=== PATIENT | male | born 1985 | race Caucasian/White ===

== ENCOUNTER 2021-10-27 16:48 | Inpatient (IN) | payer OTHER ==
[~2021-10-27] VITALS: Ht 180.3 cm; Wt 99.3 kg
--- NOTE | 2021-10-27 17:21 | NUR ---
PT SELF PRESENTS TO ED, C/O NOTICING LOW O2 SATURATION READ ON HIS PULSE OXIMETER. PT STATES PT BEEN SHORT OF BREATH SINCE MONDAY, WORST ON EXERTION AND IS HAVING A HARD TIME SLEEPING. HE HAS COVID VACCINE AND WAS TESTED RECENTLY AND RESULT IS NOT BACK YYET. 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 SATTING 93% ON RA. KAMILLA HUDSON.
--- NOTE | 2021-10-27 17:39 | NUR ---
NOA RANGEL AT BEDSIDE FOR EVAL.
--- NOTE | 2021-10-27 17:48 | NUR ---
HADOOP INFRASTRUCTURE ARCHITECT AT BEDSIDE FOR BLOOD DRAW.
[2021-10-27 18:20] LABS: BASOPHILS % (AUTO) 0.1 % (0.0-2.0); EOSINOPHILS % (AUTO) 0.1 % (0.0-6.0); HEMATOCRIT 43 % (39-51); HEMOGLOBIN 14.7 g/dL (13.5-17.5); LYMPHOCYTES # (AUTO) 1.4 K/uL (0.8-4.8); LYMPHOCYTES % (AUTO) 15.3 % (20.0-44.0); MEAN CORPUSCULAR HGB CONC 34 g/dl (31.0-36.0); MEAN CORPUSCULAR VOLUME 87 fL (80-96); MONOCYTES % (AUTO) 10.7 % (2.0-12.0); NEUTROPHILS # (AUTO) 6.9 K/uL (1.8-8.9); NEUTROPHILS % (AUTO) 73.8 % (43.0-81.0); PLATELET COUNT (AUTO) 343 K/uL (150-450); RED BLOOD CELL COUNT(AUTO) 4.95 MIL/uL (4.5-6.0); WHITE BLOOD COUNT (AUTO) 9.4 K/uL (4.3-11.0)
[2021-10-27 18:32] LABS: CALCIUM, SERUM 8.8 mg/dL (8.5-10.1); CARBON DIOXIDE 25 mmol/L (21-32); CHLORIDE 98 mmol/L (98-107); CREATININE 1.3 mg/dL (0.6-1.3); GLUCOSE 136 mg/dL (74-106); POTASSIUM 3.4 mmol/L (3.5-5.1); SODIUM SERUM 133 mmol/L (136-145); UREA NITROGEN, BLOOD 12 mg/dL (7-18)
[2021-10-27 18:44] LABS: ALANINE AMINOTRANSFERASE 59 U/L (12-78); ALBUMIN 4.3 g/dL (3.4-5.0); ALKALINE PHOSPHATASE 64 U/L (46-116); ASPARTATE AMINOTRANSFERASE 43 U/L (15-37); BILIRUBIN,DIRECT 0.1 mg/dL (0.0-0.2); BILIRUBIN,TOTAL 0.4 mg/dL (0.2-1.0); TOTAL PROTEIN, SERUM 8.4 g/dL (6.4-8.2)
[2021-10-27] MEDS ORDERED: KETOROLAC TROMETHAMINE 15 MG/ML VIAL ONE (18:45)
[2021-10-27] MEDS ORDERED: ACETAMINOPHEN ES 500 MG TABLET ONE (18:45)
[2021-10-27] MEDS ORDERED: IV NS 0.9% 500 ML BAG IV ONE ×2 (19:00→21:30)
[2021-10-27] MEDS ORDERED: ACETAMINOPHEN 325 MG TABLET PO ONE (19:00)
[2021-10-27] MEDS ORDERED: KETOROLAC TROMETHAMINE INJ 30 MG/ML VIAL IV ONE (19:00)
--- NOTE | 2021-10-27 19:01 | NUR ---
LAB CALLED PT COIVD (+)
[2021-10-27] MEDS ORDERED: POTASSIUM CHLORIDE 20 MEQ TAB.PRT.SR PO ONE ×2 (20:00→20:49)
[2021-10-27] MEDS ORDERED: DEXAMETHASONE SOD PHOSPHATE 6 MG in IV D5W 50 ML IV ONE (20:00)
[2021-10-27] MEDS ORDERED: DEXAMETHASONE SOD PHOSPHATE 10 MG/ML VIAL ONE (20:49)
[2021-10-28] MEDS ORDERED: ACETAMINOPHEN 325 MG TABLET PO PRN
[2021-10-28] MEDS ORDERED: ALBUTEROL SULFATE 8 GM HFA.AER.AD IH PRN
[2021-10-28] MEDS ORDERED: ONDANSETRON HCL/PF 4 MG/2 ML VIAL IV PRN
--- NOTE | 2021-10-28 00:08 | NUR ---
REPORT GIVEN TO RN MS2
[2021-10-28 00:35] VITALS: BP 113/68
--- NOTE | 2021-10-28 00:35 | NUR ---
PATIENT TRANSFERRED UNDER ACLS
--- NOTE | 2021-10-28 04:40 | NUR ---
Patient arrived to [facility] at 0035. Patient's breathing does not appear labored at this time, but patient does c/o SOB especially upon exertion along with fatigue. Patient is A&Ox4, VS: BP 113/68, temp 97.8, O2 sat 96% on 4L via NC., pulse 68, RR 20. Pupils equal and reactive to light, all extremities move evenly, lung sounds diminished, heart rate and rhythm regular, bowel sounds hypoactive -pt reports he hasn't eaten anything but saltines in days d/t lack of appetite. Skin intact. Tele monitor applied SR 63. Oriented pt. to unit protocols, call light, bed remote.
[2021-10-28] MEDS ORDERED: SERT100T PO (05:27)
[2021-10-28] MEDS ORDERED: BUPR300T52 PO (05:27)
[2021-10-28] MEDS ORDERED: LORA10TA68 PO (05:27)
--- NOTE | 2021-10-28 06:49 | NUR ---
No overnight events since admission. Patient is in bed with no signs of distress. However, was not able to sleep last night. O2 96% and over since admit. Addendum: 10/28/21 at 0657 by BREA BLANCHARD RN SB/SR on the monitor mostly in 60s but had 1 short episode of HR in high 40s, which patient says does happen at home often as he has a health watch that tells him his HR.
[2021-10-28 07:08] LABS: BASOPHILS % (AUTO) 0.1 % (0.0-2.0); HEMATOCRIT 44 % (39-51); HEMOGLOBIN 14.8 g/dL (13.5-17.5); LYMPHOCYTES # (AUTO) 0.9 K/uL (0.8-4.8); LYMPHOCYTES % (AUTO) 20.4 % (20.0-44.0); MEAN CORPUSCULAR HGB CONC 34 g/dl (31.0-36.0); MEAN CORPUSCULAR VOLUME 88 fL (80-96); MONOCYTES # (AUTO) 0.3 K/uL (0.1-1.30); MONOCYTES % (AUTO) 6.7 % (2.0-12.0); NEUTROPHILS # (AUTO) 3.4 K/uL (1.8-8.9); NEUTROPHILS % (AUTO) 72.8 % (43.0-81.0); PLATELET COUNT (AUTO) 342 K/uL (150-450); RED BLOOD CELL COUNT(AUTO) 4.95 MIL/uL (4.5-6.0); WHITE BLOOD COUNT (AUTO) 4.7 K/uL (4.3-11.0)
[2021-10-28 07:28] LABS: ALBUMIN 3.9 g/dL (3.4-5.0); BILIRUBIN,TOTAL 0.3 mg/dL (0.2-1.0); CALCIUM, SERUM 8.5 mg/dL (8.5-10.1); CREATININE 1.1 mg/dL (0.6-1.3); MAGNESIUM 2.8 mg/dL (1.8-2.4); PHOSPHORUS 3.3 mg/dL (2.5-4.9); POTASSIUM 4.1 mmol/L (3.5-5.1); TOTAL PROTEIN, SERUM 8.3 g/dL (6.4-8.2)
--- NOTE | 2021-10-28 07:30 | NUR ---
FIXTURE DESIGNER OPENING NOTES, PATIENT IN BED, AWAKE. ALERT AND ORIENTED X 4. NO SOB NOTED. BREATHING IS EVEN AND UNLABORED. NO C/O PAIN OR DISCOMFORT. NO ACUTE DISTRESS NOTED. PT WITH NASAL CANNULA O2 SUPPLEMENTATION 4L SATURATING AT 96%. IV ACCESS ON LFA#18G INTACT AND PATENT IN SL. PT WITH EXTERNAL FLOOR COVERING CONTRACTOR WITH SR READING. ALL SAFETY MEASURE MAINTAINED. HOB ELEVATED, BED LOCKED AND IN LOWEST POSITION WITH BED ALARM ON. CALL LIGHT WITHIN REACH. WILL CONTINUE TO MONITOR PATIENT THROUGHOUT SHIFT.
[2021-10-28 08:00] VITALS: BP 123/77
[2021-10-28 08:45] LABS: C-REACTIVE PROTEIN 3.6 mg/dL (0.0-0.9)
[2021-10-28] MEDS: DEXAMETHASONE SOD PHOSPHATE 10 MG/ML VIAL IV SCH (09:04)
[2021-10-28] MEDS: SERTRALINE HCL 50 MG TABLET PO SCH (10:06)
[2021-10-28] MEDS: BUPROPION XL 150 MG TAB.ER.24 PO SCH (10:06)
[2021-10-28] MEDS: ENOXAPARIN SODIUM 40 MG/0.4 ML DISP.SYRIN SQ SCH (11:09)
[2021-10-28] MEDS: LORATADINE 10 MG TABLET PO SCH (11:09)
[2021-10-28] MEDS ORDERED: REMDESIVIR (CHARGED) 200 MG, *LOADING DOSE 1 EA in IV NS 0.9% 210 ML IV ONE (13:00)
[2021-10-28 15:53] LABS: CREATINE KINASE, TOTAL 564 U/L (39-308); FERRITIN 388 ng/mL (8-388)
--- NOTE | 2021-10-28 18:44 | NUR ---
NOVELTY CHAIN MAKER CLOSING NOTES PATIENT REMAINS IN BED, AWAKE. ALERT AND ORIENTED X 4. NO SOB NOTED. BREATHING IS EVEN AND UNLABORED. NO C/O PAIN OR DISCOMFORT. NO ACUTE DISTRESS NOTED DURING SHIFT. NO CHANGES IN CONDITION DURING SHIFT. PT WITH NASAL CANNULA O2 SUPPLEMENTATION 4L SATURATING AT 96%. IV ACCESS ON LFA#18G INTACT AND PATENT IN. PT WITH EXTERNAL COMPRESSOR HOUSE OPERATOR WITH SR READING. ALL SAFETY MEASURE MAINTAINED. HOB ELEVATED, BED LOCKED AND IN LOWEST POSITION WITH BED ALARM ON. CALL LIGHT WITHIN REACH. WILL ENDORSE CONTINUITY OF CARE TO ONCOMING SHIFT.
--- NOTE | 2021-10-28 19:00 | NUR ---
RN notes Received Pt from morning nurse. Pt is laying in bed comfortably talking on his cellphone. Pt is alert and orientedX4. Respiration on 4 L NC. No SOB. No S/S of distress noted. IV site at LFA# 18 is clean, intact, flushes well and SL. Tele monitor showed SR. hr at 70. Pt is able to ambulates with a steady gait. safety precautions is maintained. Bed at low position, brakes locked, side rails up, HOB elevated and call light is within reach. Will continue to monitor.
[2021-10-28 20:00] VITALS: BP 121/83
--- NOTE | 2021-10-28 20:50 | NUR ---
RN notes ID at the bedside.
--- NOTE | 2021-10-28 21:54 | NUR ---
RN notes O2 titration from 4 L to 3 L NC. O2 sat is 96%. No SOB. No S/S of distress noted.
[2021-10-29] VITALS: BP 117/75
--- NOTE | 2021-10-29 02:30 | NUR ---
RN notes Transferred Pt to room 110 with ACLS protocol.
[2021-10-29 04:00] VITALS: BP 130/85
--- NOTE | 2021-10-29 06:29 | NUR ---
RN notes Pt is resting in bed comfortably. Pt is alert and orientedX4. Respiration on 3 L NC. No SOB. No S/S of distress noted. IV site at LFA# 18 is clean, intact, flushes well and SL. Tele monitor showed Sbrady 59. safety precautions is maintained. Bed at low position, brakes locked, side rails up, HOB elevated and call light is within reach. Kept Pt clean, dry and comfortable. will endorse to am nurse for JAMES.
[2021-10-29 07:09] LABS: BASOPHILS % (AUTO) 0.1 % (0.0-2.0); EOSINOPHILS % (AUTO) 0.2 % (0.0-6.0); HEMATOCRIT 41 % (39-51); HEMOGLOBIN 13.8 g/dL (13.5-17.5); LYMPHOCYTES % (AUTO) 30.8 % (20.0-44.0); MEAN CORPUSCULAR HGB CONC 34 g/dl (31.0-36.0); MEAN CORPUSCULAR VOLUME 88 fL (80-96); MONOCYTES # (AUTO) 0.7 K/uL (0.1-1.30); MONOCYTES % (AUTO) 7.5 % (2.0-12.0); NEUTROPHILS % (AUTO) 61.4 % (43.0-81.0); PLATELET COUNT (AUTO) 354 K/uL (150-450); RED BLOOD CELL COUNT(AUTO) 4.68 MIL/uL (4.5-6.0); WHITE BLOOD COUNT (AUTO) 9.8 K/uL (4.3-11.0)
[2021-10-29 07:19] LABS: ALBUMIN 3.6 g/dL (3.4-5.0); BILIRUBIN,DIRECT 0.1 mg/dL (0.0-0.2); BILIRUBIN,TOTAL 0.3 mg/dL (0.2-1.0); CALCIUM, SERUM 8.7 mg/dL (8.5-10.1); TOTAL PROTEIN, SERUM 7.4 g/dL (6.4-8.2)
--- NOTE | 2021-10-29 07:30 | NUR ---
QUALITY ASSURANCE OPENING NOTES, PATIENT IN BED, AWAKE. ALERT AND ORIENTED X 4. NO SOB NOTED. BREATHING EVEN AND UNLABORED. NO C/O PAIN OR DISCOMFORT. NO ACUTE DISTRESS NOTED. PATIENT IS ON O2 INHALATION VIA NASAL CANNULA AT 4L/MIN, SATURATING AT 96%. IV ACCESS ON LFA#18G INTACT AND PATENT IN SL. PT WITH EXTERNAL REAL ESTATE ASSISTANT WITH SR READING. ALL SAFETY MEASURE MAINTAINED. HOB ELEVATED, BED LOCKED AND IN LOWEST POSITION WITH BED ALARM ON. CALL LIGHT AND TABLE WITHIN REACH. WILL CONTINUE TO MONITOR THE PATIENT.
[2021-10-29] MEDS: DEXAMETHASONE SOD PHOSPHATE 10 MG/ML VIAL IV SCH (08:20)
[2021-10-29] MEDS: SERTRALINE HCL 50 MG TABLET PO SCH (08:21)
[2021-10-29] MEDS: BUPROPION XL 150 MG TAB.ER.24 PO SCH (08:21)
[2021-10-29] MEDS: LORATADINE 10 MG TABLET PO SCH (08:21)
[2021-10-29] MEDS: ENOXAPARIN SODIUM 40 MG/0.4 ML DISP.SYRIN SQ SCH (10:47)
[2021-10-29] MEDS ORDERED: PIPERACILLIN /TAZOBACTAM 3.375 G in IV D5W 50 ML IV SCH (14:00)
[2021-10-29] MEDS ORDERED: ZOSYN IVPB 3.375 G in IV D5W 50ml IV SCH (14:30)
[2021-10-29] MEDS: REMDESIVIR (CHARGED) 100 MG in IV NS 0.9% 100 ML IV SCH (14:48)
--- NOTE | 2021-10-29 15:11 | NUR ---
RN NOTES PATIENT HAS ALLERGY TO AMOXICILLIN AND CEFACLOR. NEW ORDER OF ZOSYN NOT GIVEN. INFORMED DR ROGERS. AT 1500. DR ROGERS CALLED BACK AT 1510 AND NEW ORDER OF DC OF ZOSYN AND NEW ORDER OF LEVAQUIN 500 MG PO DAILY GIVEN.
[2021-10-29] MEDS ORDERED: LEVOFLOXACIN (250MG) 250 MG TABLET PO SCH (17:00)
--- NOTE | 2021-10-29 18:59 | NUR ---
WREATH MACHINE OPERATOR CLOSING NOTES, PATIENT IN BED, AWAKE. ALERT AND ORIENTED X 4. NO SOB NOTED. BREATHING EVEN AND UNLABORED. NO C/O PAIN OR DISCOMFORT. NO ACUTE DISTRESS NOTED. PATIENT IS ON O2 INHALATION VIA NASAL CANNULA AT 4L/MIN, SATURATING AT 96%. IV ACCESS ON LFA#18G INTACT AND PATENT IN SL. PT WITH EXTERNAL EDITOR DEPARTMENT WITH SR READING. ALL DUE MEDS GIVEN ORDERED.ALL SAFETY MEASURE MAINTAINED. HOB ELEVATED, BED LOCKED AND IN LOWEST POSITION WITH BED ALARM ON. CALL LIGHT AND TABLE WITHIN REACH. WILL ENDORSE INCOMING SHIFT FOR JAMES.
--- NOTE | 2021-10-29 19:35 | NUR ---
RN OPENING NOTES, RECEIVED CARE OF PATIENT FROM AM NURSE WHILE PATIENT IN BED, A/O X4, ABLE TO VERBALIZE NEEDS. NO PAIN OR DISCOMFORT EXPRESSED AT THIS TIME. PATIENT IS AMBULATORY, REQUIRES MINIMAL ASSISTANCE WITH ADLS. PATIENT ON O2 AT 3 L/MIN VIA NC, O2 SAT 96%, NO SOB NOTED, NO DISTRESS NOTED. NO SIGNIFICANT FINDINGS UPON INITIAL NURSING ASSESSMENTS. IV ACCESS ON LFA#18G INTACT AND PATENT IN SL. PATIENT ON TELE MONITOR, SR AT THIS TIME WITH HEART RATE OF 88. ALL APPROPRIATE ISOLATION PRECAUTIONS IN PLACE, ALL SAFETY MEASURES IMPLEMENTED, BED LOCKED IN PLACE AND AT LOWEST POSITION, CALL LIGHT WITHIN REACH, SIDE RAILS UP X2. WILL CONTINUE TO MONITOR PATIENT.
[2021-10-29 20:00] VITALS: BP 130/77
[2021-10-30] VITALS: BP 106/69
[2021-10-30 04:00] VITALS: BP 112/74
--- NOTE | 2021-10-30 06:22 | NUR ---
RN CLOSING NOTES, WILL ENDORSE CARE OF PATIENT TO AM NURSE WHILE PATIENT IN BED, A/O X4, ASLEEP BUT WAKES UP TO NAME. ABLE TO VERBALIZE NEEDS. NO PAIN OR DISCOMFORT EXPRESSED THROUGHOUT SHIFT. PATIENT IS AMBULATORY, REQUIRES MINIMAL ASSISTANCE WITH ADLS. PATIENT ON O2 AT 3 L/MIN VIA NC, O2 SAT 95%, NO SOB NOTED, NO DISTRESS NOTED. NO SIGNIFICANT FINDINGS UPON ALL NURSING ASSESSMENTS. IV ACCESS ON LFA#18G INTACT AND PATENT. PATIENT ON TELE MONITOR, SR AT THIS TIME WITH HEART RATE OF 73. ALL APPROPRIATE ISOLATION PRECAUTIONS IN PLACE, ALL SAFETY MEASURES IMPLEMENTED, BED LOCKED IN PLACE AND AT LOWEST POSITION, CALL LIGHT WITHIN REACH, SIDE RAILS UP X2. WILL ENDORSE TO DAY SHIFT NURSE FOR JAMES.
[2021-10-30 06:34] LABS: BASOPHILS % (AUTO) 0.4 % (0.0-2.0); EOSINOPHILS % (AUTO) 0.5 % (0.0-6.0); HEMATOCRIT 42 % (39-51); HEMOGLOBIN 13.9 g/dL (13.5-17.5); LYMPHOCYTES # (AUTO) 3.1 K/uL (0.8-4.8); LYMPHOCYTES % (AUTO) 43.1 % (20.0-44.0); MEAN CORPUSCULAR HGB CONC 33 g/dl (31.0-36.0); MEAN CORPUSCULAR VOLUME 88 fL (80-96); MONOCYTES # (AUTO) 0.6 K/uL (0.1-1.30); MONOCYTES % (AUTO) 7.8 % (2.0-12.0); NEUTROPHILS # (AUTO) 3.4 K/uL (1.8-8.9); NEUTROPHILS % (AUTO) 48.2 % (43.0-81.0); PLATELET COUNT (AUTO) 377 K/uL (150-450); RED BLOOD CELL COUNT(AUTO) 4.73 MIL/uL (4.5-6.0); WHITE BLOOD COUNT (AUTO) 7.1 K/uL (4.3-11.0)
--- NOTE | 2021-10-30 07:30 | NUR ---
SUPERVISOR LEAD REFINERY OPENING NOTES, RECEIVED PATIENT IN BED, AWAKE. ALERT AND ORIENTED X 4. NO SOB NOTED. BREATHING EVEN AND UNLABORED. NO C/O PAIN OR DISCOMFORT. NO ACUTE DISTRESS NOTED. PATIENT IS ON O2 INHALATION VIA NASAL CANNULA AT 4L/MIN, SATURATING WELL. IV ACCESS ON LFA#18G INTACT AND PATENT IN SL. PT WITH EXTERNAL BEAD BUILDER WITH SR READING HR AT 69. ALL SAFETY MEASURE IN PLACE. HOB ELEVATED, BED LOCKED AND IN LOWEST POSITION WITH BED ALARM ON. CALL LIGHT AND TABLE WITHIN EASY REACH. WILL CONTINUE TO MONITOR PATIENT ACCORDINGLY.
[2021-10-30 07:52] LABS: ALBUMIN 3.4 g/dL (3.4-5.0); BILIRUBIN,DIRECT 0.1 mg/dL (0.0-0.2); BILIRUBIN,TOTAL 0.3 mg/dL (0.2-1.0); CALCIUM, SERUM 8.9 mg/dL (8.5-10.1); POTASSIUM 4.3 mmol/L (3.5-5.1); TOTAL PROTEIN, SERUM 7.1 g/dL (6.4-8.2)
[2021-10-30 08:00] VITALS: BP 112/72
[2021-10-30] MEDS: LORATADINE 10 MG TABLET PO SCH (08:08)
[2021-10-30] MEDS: DEXAMETHASONE SOD PHOSPHATE 10 MG/ML VIAL IV SCH (08:08)
[2021-10-30] MEDS: SERTRALINE HCL 50 MG TABLET PO SCH (08:08)
[2021-10-30] MEDS: BUPROPION XL 150 MG TAB.ER.24 PO SCH (08:08)
[2021-10-30] MEDS: ENOXAPARIN SODIUM 40 MG/0.4 ML DISP.SYRIN SQ SCH (10:35)
[2021-10-30 12:00] VITALS: BP 117/78
--- NOTE | 2021-10-30 12:46 | NUR ---
per cm josr [employer] insurance will ff up transportation for pt. coz covid positive.
[2021-10-30] MEDS: REMDESIVIR (CHARGED) 100 MG in IV NS 0.9% 100 ML IV SCH (14:32)
--- NOTE | 2021-10-30 16:05 | NUR ---
MEDICAL CLAIMS MANAGER NOTES DISCHARGED PATIENT IN STABLE CONDITION.VITAL SIGNS WITHIN NORMAL LIMITS. DISCHARGE INSTRUCTIONS NAD ISOLATION DISCUSSED WITH PATIENT. FOLLOW UP INSTRUCTED. HOME MEDICATIONS DISCUSSED WELL. PATIENT VERBALIZED UNDERSTANDING OF INSTRUCTIONS GIVEN. IV ACCESS REMOVED, COVERED WITH GAUZE, NO BLEEDING NOTED. BELONGINGS ACCOUNTED AND SIGNED FOR. ARMBAND REMOVED. PICKED UP BY 2 EMT FROM [facility]. LEFT UNIT IN STABLE CONDITION. MD AND CHARGE NURSE AWARE OF DISCHARGE.
== END 2021-10-30 16:21 | disposition home or self-care (01) | DRG 177 ==
LOC: ER 16:50 → TRANSITION 23:13 → TELE2 23:43 → TELE1 10-29 03:03
PROVIDERS: ADMIT Nurse Practitioner Family; ATTEND Internal Medicine
PROC: XW033E5 Introduction of Remdesivir Anti-infective into Peripheral Vein, Percutaneous Approach, New Technology Group 5 (ICD-10-PCS; principal; 2021-10-28)
DX: U07.1 COVID-19 (principal); J12.82 Pneumonia due to coronavirus disease 2019; J96.01 Acute respiratory failure with hypoxia; J15.1 Pneumonia due to Pseudomonas; E87.1 Hypo-osmolality and hyponatremia; G47.33 Obstructive sleep apnea (adult) (pediatric); E66.9 Obesity, unspecified; E87.6 Hypokalemia; Z68.30 Body mass index [BMI] 30.0-30.9, adult; R73.9 Hyperglycemia, unspecified
CPT/HCPCS: 36415; 71045-TC; 71250-TC; 80048-TC; 80053-TC; 80076-TC; 82550-TC; 82553; 82728-TC; 83605-TC; 83615-TC; 83735-TC; 83880; 84100-TC; 84484-TC; 85025-TC; 85378-TC; 85610-TC; 85730-TC; 86140-TC; 87040-TC; A4216; C9803; G0378; J1100; J1650; J1885; J2543; J7030; J7040; J7050; J7060